=== PATIENT | male | born 1955 | race Hispanic/Latino ===

== ENCOUNTER 2021-02-05 12:22 | Inpatient (IN) | payer OTHER, SELFPAY ==
[2021-02-05] MEDS ORDERED: Ondansetron ODT 4 MG TAB PO PRN (18:09)
[2021-02-05] MEDS ORDERED: Acetaminophen 325 MG TAB PO PRN (18:09)
[2021-02-05] MEDS ORDERED: Electrolyte Replacement Protocol 1 EACH FS SCH (18:15)
[2021-02-05 20:42] LABS: CKMB 2.2 ng/mL (0-6.6)
[2021-02-05] MEDS ORDERED: glyBURIDE 5 MG TAB PO SCH (21:00)
[2021-02-05] MEDS: Gabapentin 300 MG CAP PO SCH (21:44)
[2021-02-05] MEDS: Atorvastatin Calcium 10 MG TAB PO SCH (21:45)
[2021-02-05] MEDS ORDERED: HumaLOG 300 UNITS/3 ML VIAL SC SCH (22:45)
[2021-02-06] MEDS ORDERED: HumaLOG 300 UNITS/3 ML VIAL SC SCH (00:30)
[2021-02-06 04:33] LABS: #Basophils 0.1 10x3/uL (0.0-0.2); #Eosinphils 0.2 10x3/uL (0.0-0.5); #Monocytes 0.9 10x3/uL (0.0-1.1); #Neutrophils 5.2 10x3/uL (1.5-8.4); %Basophils 0.8 % (0.0-2.0); %Eosinophils 2.5 % (0.0-6.0); %Lymphocytes 20.1 % (18.0-47.0); %Monocytes 11.2 % (0.0-10.0); Mean Corpuscular HGB CONC 30.8 g/dL (32.0-36.0); Mean Corpuscular Hemoglobin 27.4 pg (27.0-33.0); Mean Corpuscular Volume 88.8 fl (81.2-95.1); Mean Platelet Volume 10.5 fl (7.4-10.4); Platelet Count 204 10x3/uL (150-450); Red Blood Cell (RBC) Count 4.38 10x6/uL (4.32-5.72)
[2021-02-06 04:46] LABS: Anion Gap 8 mmol/L (10-20); BUN (Urea Nitrogen) 19 mg/dL (8.4-25.7); Calc. Creatinine Clearance 142 mL/min (70-130); Calcium 8.9 mg/dL (7.8-10.44); Carbon Dioxide 29 mmol/L (23-31); Cardiac Risk 2.7 (Less than 4.5); Chloride 106 mmol/L (98-107); Cholesterol 90 mg/dl (< 200 Desired); Glucose 149 mg/dL (80-115); HDL Cholesterol 33 mg/dL (>60 Neg Risk); LDL Cholesterol, Calculated 42 mg/dL; Potassium 3.7 mmol/L (3.5-5.1); Sodium 139 mmol/L (136-145); Triglycerides 76 mg/dL (Less than 150)
[2021-02-06] MEDS: Furosemide 40 MG/4 ML VIAL SLOW IVP SCH ×2 (06:37→14:18)
[2021-02-06] MEDS ORDERED: glyBURIDE 5 MG TAB PO SCH (07:30)
[2021-02-06] MEDS ORDERED: Losartan 25 MG TAB PO SCH (09:00)
[2021-02-06] MEDS ORDERED: metFORMIN 500 MG TAB PO SCH (09:00)
[2021-02-06] MEDS ORDERED: Lisinopril 2.5 MG TAB PO SCH (09:00)
[2021-02-06] MEDS: Fenofibrate Nanocrystallized 145 MG TAB PO SCH (09:21)
[2021-02-06] MEDS: Aspirin 81 mg Enteric Coated Tablet PO SCH (09:21)
[2021-02-06] MEDS: Carvedilol 6.25 MG TAB PO SCH (09:22)
[2021-02-06] MEDS: Tamsulosin HCl 0.4 MG CAP PO SCH (09:22)
[2021-02-06] MEDS: Gabapentin 300 MG CAP PO SCH ×3 (09:22→20:12)
[2021-02-06] MEDS ORDERED: Dextrose 50% Abboject 50 ML SYRINGE SLOW IVP PRN (10:14)
[2021-02-06] MEDS ORDERED: Dextrose 5% in Water 1,000 ML IV PRN (10:14)
[2021-02-06 10:34] VITALS: BMI 36.9
[2021-02-06 12:47] LABS: Hemoglobin A1c 11.7 % (4.0-6.0)
[2021-02-06] MEDS: HumaLOG 300 UNITS/3 ML VIAL SC PRN ×3 (12:50→20:13)
[2021-02-06 14:36] LABS: Bilirubin Neg (Negative); Blood, Urine Negative (Negative); Clarity Clear (Clear); Glucose, Urine (Dipstick) >=1000 mg/dL (Negative); Ketone, Urine Negative (Negative); Leukocyte Negative (Negative); Nitrite Negative (Negative); Protein, Urine (Dipstick) 15 mg/dl (Neg-Trace); Specific Gravity, Urine 1.015 (1.002-1.036); Urobilinogen Normal mg/dL (Less than 2)
[2021-02-06 15:12] LABS: Bacteria/HPF None Seen HPF (None Seen); RBC/HPF None Seen HPF (0-3); Squamous Epithelial None Seen HPF (0-3); Urine Culture Reflex No No; WBC/HPF None Seen HPF (0-3)
[2021-02-06 18:45] LABS: SARS-CoV-2 NAA Rapid Test Not Detected (NotDetected)
[2021-02-06 19:44] LABS: SARS-CoV-2 PCR by NAA Not Detected (NotDetected)
[2021-02-06] MEDS: Atorvastatin Calcium 10 MG TAB PO SCH (20:12)
[2021-02-07] MEDS: HumaLOG 300 UNITS/3 ML VIAL SC PRN ×4 (05:46→21:11)
[2021-02-07 06:03] LABS: #Eosinphils 0.2 10x3/uL (0.0-0.5); #Monocytes 1.1 10x3/uL (0.0-1.1); #Neutrophils 6.5 10x3/uL (1.5-8.4); %Basophils 0.4 % (0.0-2.0); %Eosinophils 1.8 % (0.0-6.0); %Lymphocytes 15.2 % (18.0-47.0); %Monocytes 11.8 % (0.0-10.0); %Neutrophils 70.5 % (40.0-75.0); Hemoglobin 12.2 g/dL (13.5-17.5); Mean Corpuscular HGB CONC 31.4 g/dL (32.0-36.0); Mean Corpuscular Hemoglobin 27.5 pg (27.0-33.0); Mean Corpuscular Volume 87.4 fl (81.2-95.1); Mean Platelet Volume 10.2 fl (7.4-10.4); Platelet Count 232 10x3/uL (150-450); RBC Distribution Width 13.1 % (11.5-14.5); Red Blood Cell (RBC) Count 4.44 10x6/uL (4.32-5.72); White Blood Cell (WBC) Count 9.3 10x3/uL (3.5-10.5)
[2021-02-07 06:33] LABS: Anion Gap 11 mmol/L (10-20); BUN (Urea Nitrogen) 20 mg/dL (8.4-25.7); Calc. Creatinine Clearance 122 mL/min (70-130); Calcium 8.9 mg/dL (7.8-10.44); Carbon Dioxide 32 mmol/L (23-31); Chloride 100 mmol/L (98-107); Glucose 299 mg/dL (80-115); Sodium 139 mmol/L (136-145)
[2021-02-07] MEDS: Carvedilol 6.25 MG TAB PO SCH (09:51)
[2021-02-07] MEDS: Fenofibrate Nanocrystallized 145 MG TAB PO SCH (09:51)
[2021-02-07] MEDS: Aspirin 81 mg Enteric Coated Tablet PO SCH (09:51)
[2021-02-07] MEDS: Gabapentin 300 MG CAP PO SCH ×3 (09:51→21:11)
[2021-02-07] MEDS: Tamsulosin HCl 0.4 MG CAP PO SCH (09:51)
[2021-02-07] MEDS: Atorvastatin Calcium 10 MG TAB PO SCH (21:11)
[2021-02-07] MEDS ORDERED: NPH, Human Insulin Isophane 300 UNIT/3 ML VIAL SC SCH (21:30)
[2021-02-07] MEDS ORDERED: Cepastat Lozenges 1 LOZ PO PRN (22:12)
[2021-02-08] MEDS ORDERED: Melatonin 3 MG TAB PO PRN (02:23)
[2021-02-08 06:14] LABS: Anion Gap 12 mmol/L (10-20); BUN (Urea Nitrogen) 21 mg/dL (8.4-25.7); Calc. Creatinine Clearance 122 mL/min (70-130); Calcium 9.2 mg/dL (7.8-10.44); Carbon Dioxide 31 mmol/L (23-31); Chloride 100 mmol/L (98-107); Glucose 201 mg/dL (80-115); Potassium 4.1 mmol/L (3.5-5.1); Sodium 139 mmol/L (136-145)
[2021-02-08 07:23] LABS: #Eosinphils 0.1 10x3/uL (0.0-0.5); #Monocytes 0.9 10x3/uL (0.0-1.1); #Neutrophils 6.6 10x3/uL (1.5-8.4); %Basophils 0.4 % (0.0-2.0); %Eosinophils 1.5 % (0.0-6.0); %Lymphocytes 16.8 % (18.0-47.0); %Monocytes 9.8 % (0.0-10.0); %Neutrophils 71.1 % (40.0-75.0); Hemoglobin 12.5 g/dL (13.5-17.5); Mean Corpuscular HGB CONC 31.6 g/dL (32.0-36.0); Mean Corpuscular Hemoglobin 27.7 pg (27.0-33.0); Mean Corpuscular Volume 87.6 fl (81.2-95.1); Mean Platelet Volume 10.9 fl (7.4-10.4); Platelet Count 235 10x3/uL (150-450); RBC Distribution Width 12.8 % (11.5-14.5); Red Blood Cell (RBC) Count 4.52 10x6/uL (4.32-5.72); White Blood Cell (WBC) Count 9.4 10x3/uL (3.5-10.5)
[2021-02-08] MEDS ORDERED: Clopidogrel Bisulfate 75 MG TAB PO SCH (09:00)
[2021-02-08] MEDS: Tamsulosin HCl 0.4 MG CAP PO SCH (09:32)
[2021-02-08] MEDS: Fenofibrate Nanocrystallized 145 MG TAB PO SCH (09:32)
[2021-02-08] MEDS: Aspirin 81 mg Enteric Coated Tablet PO SCH (09:32)
[2021-02-08] MEDS: Carvedilol 6.25 MG TAB PO SCH (09:32)
[2021-02-08] MEDS: Gabapentin 300 MG CAP PO SCH ×2 (09:32→17:00)
[2021-02-08] MEDS: HumaLOG 300 UNITS/3 ML VIAL SC PRN ×2 (13:23→17:41)
[2021-02-08 18:59] VITALS: BP 104/61; TEMP 98.7
[2021-02-08] MEDS ORDERED: FLU VACC QS2021-22(65YR UP)/PF 240 MCG/0.7 ML SYRINGE IM ONE (19:00)
== END 2021-02-08 18:35 | disposition home or self-care (01) | DRG 205 ==
LOC: CSHERS 12:22 → CSHTELE 15:21 → UNDOADMIN 15:21 → CSHTELE 02-06 12:24
PROVIDERS: ADMIT Internal Medicine; ATTEND Hospitalist
DX: J98.6 Disorders of diaphragm (principal); J96.01 Acute respiratory failure with hypoxia; I50.32 Chronic diastolic (congestive) heart failure; I11.0 Hypertensive heart disease with heart failure; E78.5 Hyperlipidemia, unspecified; I25.10 Atherosclerotic heart disease of native coronary artery without angina pectoris; E11.42 Type 2 diabetes mellitus with diabetic polyneuropathy; N28.1 Cyst of kidney, acquired; N40.0 Benign prostatic hyperplasia without lower urinary tract symptoms; E66.01 Morbid (severe) obesity due to excess calories; Z79.899 Other long term (current) drug therapy; Z95.5 Presence of coronary angioplasty implant and graft; I25.2 Old myocardial infarction; Z91.14 Patient's other noncompliance with medication regimen; Z68.34 Body mass index [BMI] 34.0-34.9, adult; Z20.822 Contact with and (suspected) exposure to COVID-19
CPT/HCPCS: 0240U; 36415; 36416; 71045; 71275; 74177; 80048; 80061; 81001; 82553; 83036; 83880; 84300; 85025; 85379; 93306; 93970; 94760; 96374; J1815; J1940; U0003; U0005

== ENCOUNTER 2022-01-16 13:58 | Inpatient (IN) | payer OTHER ==
[~2022-01-16 13:58] MED LIST: Iopamidol 370 76% 100 ML VIAL ONE
[2022-01-16 14:55] LABS: #Basophils 0.1 10x3/uL (0.0-0.2); #Eosinphils 0.2 10x3/uL (0.0-0.5); #Monocytes 0.7 10x3/uL (0.0-1.1); #Neutrophils 4.2 10x3/uL (1.5-8.4); %Basophils 1.1 % (0.0-2.0); %Eosinophils 3.2 % (0.0-6.0); %Lymphocytes 21.4 % (18.0-47.0); %Monocytes 9.9 % (0.0-10.0); %Neutrophils 64.1 % (40.0-75.0); Hemoglobin 12.8 g/dL (13.5-17.5); Mean Corpuscular HGB CONC 31.9 g/dL (32.0-36.0); Mean Corpuscular Hemoglobin 28.1 pg (27.0-33.0); Mean Corpuscular Volume 88.1 fl (81.2-95.1); Platelet Count 300 10x3/uL (150-450); RBC Distribution Width 14.6 % (11.5-14.5); Red Blood Cell (RBC) Count 4.55 10x6/uL (4.32-5.72); White Blood Cell (WBC) Count 6.6 10x3/uL (3.5-10.5)
[2022-01-16 15:12] LABS: ALT (SGPT) 40 U/L (8-55); AST (SGOT) 32 U/L (5-34); Albumin 3.5 g/dL (3.4-4.8); Alkaline Phosphatase 72 U/L (40-110); Anion Gap 13 mmol/L (10-20); BUN (Urea Nitrogen) 31 mg/dL (8.4-25.7); Bilirubin, Total 0.6 mg/dL (0.2-1.2); Calc. Creatinine Clearance 0 mL/min (70-130); Calcium 9.9 mg/dL (7.8-10.44); Carbon Dioxide 31 mmol/L (23-31); Chloride 103 mmol/L (98-107); Estimated GFR 52; Globulin 3.1 g/dL (2.4-3.5); Glucose 195 mg/dL (80-115); Lipase 33 U/L (8-78); Magnesium 1.8 mg/dL (1.6-2.6); Potassium 4.1 mmol/L (3.5-5.1); Protein, Total 6.6 g/dL (5.8-8.1); Sodium 143 mmol/L (136-145)
[2022-01-16 15:17] LABS: SARS-CoV-2 NAA Rapid Test Not Detected (NotDetected)
[2022-01-16 15:31] LABS: CKMB 11.2 ng/mL (0-6.6)
[2022-01-16] MEDS ORDERED: Furosemide 40 MG/4 ML VIAL ONE (17:23)
[2022-01-16] MEDS ORDERED: Aspirin 325 MG TAB ONE (17:23)
[2022-01-16] MEDS ORDERED: Acetaminophen 325 MG TAB PO PRN (18:53)
[2022-01-16] MEDS ORDERED: Acetaminophen 650 MG Suppository PR PRN (18:53)
[2022-01-16] MEDS ORDERED: Insulin Regular 300 UNITS/3 ML VIAL SC PRN (18:56)
[2022-01-16] MEDS ORDERED: Dextrose 5% in Water 1,000 ML IV PRN (18:56)
[2022-01-16] MEDS ORDERED: Dextrose 50% Abboject 50 ML SYRINGE SLOW IVP PRN (18:56)
[2022-01-16] MEDS ORDERED: Enoxaparin Sodium 40 MG/0.4 ML SYRINGE SC SCH (19:00)
[2022-01-16 19:51] VITALS: BMI 34.9
[2022-01-16] MEDS: Atorvastatin Calcium 10 MG TAB PO SCH (20:15)
[2022-01-16] MEDS: Gabapentin 300 MG CAP PO SCH (20:42)
[2022-01-17 05:14] LABS: Anion Gap 12 mmol/L (10-20); BUN (Urea Nitrogen) 29 mg/dL (8.4-25.7); Calc. Creatinine Clearance 102 mL/min (70-130); Calcium 9.6 mg/dL (7.8-10.44); Carbon Dioxide 32 mmol/L (23-31); Chloride 102 mmol/L (98-107); Estimated GFR 62; Glucose 260 mg/dL (80-115); Potassium 4.3 mmol/L (3.5-5.1); Sodium 142 mmol/L (136-145)
[2022-01-17] MEDS: Insulin Regular 300 UNITS/3 ML VIAL SC PRN (05:33)
[2022-01-17 05:34] LABS: #Basophils 0.1 10x3/uL (0.0-0.2); #Eosinphils 0.2 10x3/uL (0.0-0.5); #Monocytes 0.7 10x3/uL (0.0-1.1); #Neutrophils 4.4 10x3/uL (1.5-8.4); %Basophils 0.9 % (0.0-2.0); %Lymphocytes 21.5 % (18.0-47.0); %Monocytes 10.5 % (0.0-10.0); Hemoglobin 11.9 g/dL (13.5-17.5); Mean Corpuscular HGB CONC 31.3 g/dL (32.0-36.0); Mean Corpuscular Hemoglobin 27.9 pg (27.0-33.0); Mean Corpuscular Volume 89.2 fl (81.2-95.1); Mean Platelet Volume 10.7 fl (7.4-10.4); Platelet Count 284 10x3/uL (150-450); RBC Distribution Width 14.5 % (11.5-14.5); Red Blood Cell (RBC) Count 4.26 10x6/uL (4.32-5.72); White Blood Cell (WBC) Count 6.9 10x3/uL (3.5-10.5)
[2022-01-17] MEDS: Furosemide 40 MG/4 ML VIAL SLOW IVP SCH ×2 (05:34→18:45)
[2022-01-17] MEDS ORDERED: FLU VACC QS2022-23(65YR UP)/PF 240 MCG/0.7 ML SYRINGE IM ONE (09:00)
[2022-01-17] MEDS: Gabapentin 300 MG CAP PO SCH ×3 (09:32→20:13)
[2022-01-17] MEDS: Tamsulosin HCl 0.4 MG CAP PO SCH (09:33)
[2022-01-17] MEDS: Carvedilol 6.25 MG TAB PO SCH (09:33)
[2022-01-17] MEDS: Clopidogrel Bisulfate 75 MG TAB PO SCH (09:33)
[2022-01-17] MEDS: Fenofibrate Nanocrystallized 145 MG TAB PO SCH (11:12)
[2022-01-17] MEDS ORDERED: Furosemide 20 MG/2 ML VIAL ONE (14:47)
[2022-01-17] MEDS: Atorvastatin Calcium 10 MG TAB PO SCH (20:13)
[2022-01-17] MEDS ORDERED: Enoxaparin Sodium 40 MG/0.4 ML SYRINGE SC SCH (21:00)
[2022-01-18] MEDS: Furosemide 20 MG/2 ML VIAL ONE ×2 (05:08→05:14)
[2022-01-18] MEDS: Furosemide 40 MG/4 ML VIAL SLOW IVP SCH (05:16)
[2022-01-18 05:45] LABS: #Basophils 0.1 10x3/uL (0.0-0.2); #Eosinphils 0.1 10x3/uL (0.0-0.5); #Monocytes 0.6 10x3/uL (0.0-1.1); #Neutrophils 3.9 10x3/uL (1.5-8.4); %Basophils 0.8 % (0.0-2.0); %Eosinophils 2.3 % (0.0-6.0); %Lymphocytes 23.5 % (18.0-47.0); %Monocytes 10.3 % (0.0-10.0); %Neutrophils 62.6 % (40.0-75.0); Hemoglobin 11.8 g/dL (13.5-17.5); Mean Corpuscular HGB CONC 32.2 g/dL (32.0-36.0); Mean Corpuscular Hemoglobin 28.1 pg (27.0-33.0); Mean Corpuscular Volume 87.4 fl (81.2-95.1); Mean Platelet Volume 11.2 fl (7.4-10.4); Platelet Count 297 10x3/uL (150-450); RBC Distribution Width 14.2 % (11.5-14.5); White Blood Cell (WBC) Count 6.2 10x3/uL (3.5-10.5)
[2022-01-18 05:58] LABS: Anion Gap 14 mmol/L (10-20); BUN (Urea Nitrogen) 32 mg/dL (8.4-25.7); Calc. Creatinine Clearance 97 mL/min (70-130); Calcium 9.4 mg/dL (7.8-10.44); Carbon Dioxide 28 mmol/L (23-31); Chloride 100 mmol/L (98-107); Estimated GFR 58; Glucose 393 mg/dL (80-115); Potassium 4.5 mmol/L (3.5-5.1); Sodium 137 mmol/L (136-145)
[2022-01-18] MEDS: Insulin Regular 300 UNITS/3 ML VIAL SC PRN (06:21)
[2022-01-18 07:52] VITALS: TEMP 98.3
[2022-01-18 10:03] VITALS: BP 117/80
[2022-01-18] MEDS: Carvedilol 6.25 MG TAB PO SCH (10:03)
[2022-01-18] MEDS: Fenofibrate Nanocrystallized 145 MG TAB PO SCH (10:04)
[2022-01-18] MEDS: Tamsulosin HCl 0.4 MG CAP PO SCH (10:04)
[2022-01-18] MEDS: Gabapentin 300 MG CAP PO SCH (10:04)
[2022-01-18] MEDS: Clopidogrel Bisulfate 75 MG TAB PO SCH (10:04)
== END 2022-01-18 12:00 | disposition home or self-care (01) | DRG 291 ==
LOC: CSHERS 13:58 → CSHTELE 19:33 → OBSVTOIN 19:34
PROVIDERS: ADMIT Student in an Organized Health Care Education/Training Program; ATTEND Family Medicine
DX: I11.0 Hypertensive heart disease with heart failure (principal); I50.23 Acute on chronic systolic (congestive) heart failure; J96.01 Acute respiratory failure with hypoxia; N17.9 Acute kidney failure, unspecified; Z20.822 Contact with and (suspected) exposure to COVID-19; E78.5 Hyperlipidemia, unspecified; I71.21 Aneurysm of the ascending aorta, without rupture; R77.8 Other specified abnormalities of plasma proteins; I25.10 Atherosclerotic heart disease of native coronary artery without angina pectoris; E11.42 Type 2 diabetes mellitus with diabetic polyneuropathy; N40.0 Benign prostatic hyperplasia without lower urinary tract symptoms; Z95.5 Presence of coronary angioplasty implant and graft; Z79.899 Other long term (current) drug therapy; Z79.84 Long term (current) use of oral hypoglycemic drugs; Z98.890 Other specified postprocedural states; Z87.442 Personal history of urinary calculi; I25.2 Old myocardial infarction; Z79.02 Long term (current) use of antithrombotics/antiplatelets
CPT/HCPCS: 36415; 36416; 71045; 71275; 80048; 80053; 82553; 83690; 83735; 83880; 84484; 85025; 85379; 93005; 93306; 94760; 96374; J1650; J1815; J1940; Q9967

== ENCOUNTER 2022-02-12 07:49 | Inpatient (IN) | payer OTHER, SELFPAY ==
[2022-02-12] MEDS ORDERED: Furosemide 40 MG/4 ML VIAL ONE (08:35)
[2022-02-12] MEDS ORDERED: Aspirin Chewable 81 MG TAB ONE (08:35)
[2022-02-12] MEDS ORDERED: Nitroglycerin 2% Ointment 1 INCH/1 GM Packet ONE (08:36)
[2022-02-12 08:47] LABS: #Basophils 0.1 10x3/uL (0.0-0.2); #Eosinphils 0.2 10x3/uL (0.0-0.5); #Monocytes 0.7 10x3/uL (0.0-1.1); %Basophils 0.7 % (0.0-2.0); %Eosinophils 2.1 % (0.0-6.0); %Monocytes 8.9 % (0.0-10.0); %Neutrophils 75.1 % (40.0-75.0); Hemoglobin 12.1 g/dL (13.5-17.5); Mean Corpuscular HGB CONC 31.7 g/dL (32.0-36.0); Mean Corpuscular Hemoglobin 27.4 pg (27.0-33.0); Mean Corpuscular Volume 86.6 fl (81.2-95.1); Mean Platelet Volume 9.7 fl (7.4-10.4); Platelet Count 314 10x3/uL (150-450); RBC Distribution Width 14.5 % (11.5-14.5); Red Blood Cell (RBC) Count 4.41 10x6/uL (4.32-5.72)
[2022-02-12 08:58] LABS: ALT (SGPT) 20 U/L (8-55); AST (SGOT) 20 U/L (5-34); Albumin 3.3 g/dL (3.4-4.8); Alkaline Phosphatase 55 U/L (40-110); Anion Gap 14 mmol/L (10-20); BUN (Urea Nitrogen) 27 mg/dL (8.4-25.7); Bilirubin, Total 0.8 mg/dL (0.2-1.2); Calc. Creatinine Clearance 0 mL/min (70-130); Calcium 9.6 mg/dL (7.8-10.44); Carbon Dioxide 29 mmol/L (23-31); Chloride 106 mmol/L (98-107); Estimated GFR 76; Globulin 3.2 g/dL (2.4-3.5); Glucose 176 mg/dL (80-115); Potassium 4.8 mmol/L (3.5-5.1); Protein, Total 6.5 g/dL (5.8-8.1); Sodium 144 mmol/L (136-145)
[2022-02-12 08:59] LABS: Acetaminophen Less than 10.0 mcg/mL (10.0-30.0); Alcohol Less than 10 mg/dL (Less than 10); Salicylate Less than 8.0 mg/dL (15.0-30.0)
[2022-02-12 09:13] LABS: SARS-CoV-2 NAA Rapid Test Not Detected (NotDetected)
[2022-02-12 09:57] LABS: Bilirubin Neg (Negative); Blood, Urine Negative (Negative); Clarity Clear (Clear); Glucose, Urine (Dipstick) Normal (Negative); Ketone, Urine Negative (Negative); Leukocyte Negative (Negative); Nitrite Negative (Negative); Protein, Urine (Dipstick) 15 mg/dl (Neg-Trace); Urobilinogen Normal mg/dL (Less than 2)
[2022-02-12 10:05] LABS: Amphetamine Not Detected (NotDetected); Barbiturates Screen Not Detected (NotDetected); Benzodiazepine Screen Not Detected (NotDetected); Cocaine Metabolite Screen Not Detected (NotDetected); Methadone Not Detected (NotDetected); Methamphetamine Not Detected (NotDetected); Opiate Screen Not Detected (NotDetected); Oxycodone Screen Not Detected (NotDetected); Phencyclidine (PCP) Not Detected (NotDetected); THC/Cannabinoid Screen Not Detected (NotDetected); Tricyclic Screen Not Detected (NotDetected)
[2022-02-12] MEDS ORDERED: Ondansetron PF 4 MG/2 ML Vial IVP PRN (11:22)
[2022-02-12] MEDS ORDERED: Acetaminophen 650 MG Suppository PR PRN (11:22)
[2022-02-12] MEDS ORDERED: Ondansetron ODT 4 MG TAB PO PRN (11:22)
[2022-02-12] MEDS ORDERED: Dextrose 50% Abboject 50 ML SYRINGE SLOW IVP PRN (11:25)
[2022-02-12] MEDS ORDERED: Dextrose 5% in Water 1,000 ML IV PRN (11:25)
[2022-02-12] MEDS ORDERED: Insulin Regular 300 UNITS/3 ML VIAL SC PRN (11:25)
[2022-02-12 11:46] LABS: Troponin I 0.023 ng/mL (< 0.028)
[2022-02-12 12:09] LABS: Magnesium 1.6 mg/dL (1.6-2.6)
[2022-02-12 12:16] LABS: Actual Bicarbonate (HCO3a) 31.8 mEq/L (22-28); Base Excess (BEa) 4.9 mEq/L (-2.0 to +3.0); Hemoglobin (Hb) 13.3 g/dL (14.0-18.0); O2 Tension (PaO2), arterial 80.4 mmHg (> 80.0); pH, Arterial 7.36 (7.35-7.45)
[2022-02-12 12:17] LABS: Calcium, Ionized (arterial) 1.26 mmol/L (1.12-1.30); Potassium - ABG Lab 4.4 mmol/L (3.70-5.30); Puncture Site LRA
[2022-02-12] MEDS ORDERED: Enoxaparin Sodium 40 MG/0.4 ML SYRINGE SC SCH (13:00)
[2022-02-12] MEDS: Furosemide 40 MG/4 ML VIAL SLOW IVP SCH (14:44)
[2022-02-12 15:07] LABS: Troponin I 0.019 ng/mL (< 0.028)
[2022-02-12] MEDS ORDERED: FLU VACC QS2022-23(65YR UP)/PF 240 MCG/0.7 ML SYRINGE IM ONE (16:00)
[2022-02-12] MEDS ORDERED: Magnesium 2 GM/50 ML BAG (IN WATER) ONE (20:44)
[2022-02-12] MEDS: Atorvastatin Calcium 10 MG TAB PO SCH (20:56)
[2022-02-12] MEDS: Melatonin 3 MG TAB PO SCH (20:56)
[2022-02-12] MEDS ORDERED: Magnesium 2 GM/50 ML(in water) 2 GM in Premix Bag 1 BAG IVPB SCH (21:00)
[2022-02-13 04:07] LABS: #Eosinphils 0.1 10x3/uL (0.0-0.5); #Monocytes 0.4 10x3/uL (0.0-1.1); #Neutrophils 4.5 10x3/uL (1.5-8.4); %Basophils 0.3 % (0.0-2.0); %Eosinophils 1.4 % (0.0-6.0); %Lymphocytes 12.8 % (18.0-47.0); %Monocytes 7.4 % (0.0-10.0); %Neutrophils 77.8 % (40.0-75.0); Hemoglobin 11.2 g/dL (13.5-17.5); Mean Corpuscular HGB CONC 31.2 g/dL (32.0-36.0); Mean Corpuscular Hemoglobin 27.3 pg (27.0-33.0); Mean Corpuscular Volume 87.3 fl (81.2-95.1); Platelet Count 282 10x3/uL (150-450); RBC Distribution Width 14.3 % (11.5-14.5); Red Blood Cell (RBC) Count 4.11 10x6/uL (4.32-5.72); White Blood Cell (WBC) Count 5.8 10x3/uL (3.5-10.5)
[2022-02-13 04:20] LABS: Anion Gap 13 mmol/L (10-20); BUN (Urea Nitrogen) 32 mg/dL (8.4-25.7); Calc. Creatinine Clearance 110 mL/min (70-130); Calcium 9.3 mg/dL (7.8-10.44); Carbon Dioxide 31 mmol/L (23-31); Chloride 102 mmol/L (98-107); Estimated GFR 68; Glucose 334 mg/dL (80-115); Magnesium 1.8 mg/dL (1.6-2.6); Potassium 4.6 mmol/L (3.5-5.1); Sodium 141 mmol/L (136-145)
[2022-02-13] MEDS: Insulin Regular 300 UNITS/3 ML VIAL SC PRN ×2 (05:22→13:46)
[2022-02-13] MEDS: Furosemide 40 MG/4 ML VIAL SLOW IVP SCH ×2 (06:34→12:18)
[2022-02-13] MEDS: Carvedilol 6.25 MG TAB PO SCH (09:52)
[2022-02-13] MEDS: Tamsulosin HCl 0.4 MG CAP PO SCH (09:52)
[2022-02-13] MEDS: Enoxaparin Sodium 40 MG/0.4 ML SYRINGE SC SCH (09:52)
[2022-02-13] MEDS: Aspirin Chewable 81 MG TAB PO SCH (09:52)
[2022-02-13] MEDS: Fenofibrate Nanocrystallized 145 MG TAB PO SCH (09:52)
[2022-02-13] MEDS: Clopidogrel Bisulfate 75 MG TAB PO SCH (09:52)
[2022-02-13] MEDS ORDERED: Furosemide 40 MG TAB PO SCH ×2 (11:45→17:30)
[2022-02-13] MEDS ORDERED: OLANZapine 5 MG TAB PO SCH (17:00)
[2022-02-13] MEDS ORDERED: Lorazepam 2 MG/ML VIAL SLOW IVP SCH (17:00)
[2022-02-13] MEDS: Melatonin 3 MG TAB PO SCH (20:45)
[2022-02-13] MEDS: Atorvastatin Calcium 10 MG TAB PO SCH (20:45)
[2022-02-14 04:19] LABS: #Basophils 0.1 10x3/uL (0.0-0.2); #Eosinphils 0.2 10x3/uL (0.0-0.5); #Monocytes 0.9 10x3/uL (0.0-1.1); #Neutrophils 4.5 10x3/uL (1.5-8.4); %Basophils 0.9 % (0.0-2.0); %Eosinophils 2.1 % (0.0-6.0); %Lymphocytes 26.5 % (18.0-47.0); %Monocytes 11.7 % (0.0-10.0); %Neutrophils 58.5 % (40.0-75.0); Hemoglobin 12.3 g/dL (13.5-17.5); Mean Corpuscular HGB CONC 31.6 g/dL (32.0-36.0); Mean Corpuscular Hemoglobin 27.2 pg (27.0-33.0); Mean Corpuscular Volume 85.9 fl (81.2-95.1); Mean Platelet Volume 9.8 fl (7.4-10.4); Platelet Count 342 10x3/uL (150-450); RBC Distribution Width 14.5 % (11.5-14.5); Red Blood Cell (RBC) Count 4.53 10x6/uL (4.32-5.72); White Blood Cell (WBC) Count 7.7 10x3/uL (3.5-10.5)
[2022-02-14 04:28] LABS: Anion Gap 13 mmol/L (10-20); BUN (Urea Nitrogen) 34 mg/dL (8.4-25.7); Calc. Creatinine Clearance 101 mL/min (70-130); Calcium 10.2 mg/dL (7.8-10.44); Carbon Dioxide 33 mmol/L (23-31); Chloride 97 mmol/L (98-107); Estimated GFR 61; Glucose 222 mg/dL (80-115); Potassium 3.9 mmol/L (3.5-5.1); Sodium 139 mmol/L (136-145)
[2022-02-14] MEDS: Insulin Regular 300 UNITS/3 ML VIAL SC PRN (05:17)
[2022-02-14] MEDS: Furosemide 40 MG/4 ML VIAL SLOW IVP SCH (08:12)
[2022-02-14] MEDS: Fenofibrate Nanocrystallized 145 MG TAB PO SCH (08:15)
[2022-02-14] MEDS: Enoxaparin Sodium 40 MG/0.4 ML SYRINGE SC SCH (08:15)
[2022-02-14] MEDS: Tamsulosin HCl 0.4 MG CAP PO SCH (08:15)
[2022-02-14] MEDS: Clopidogrel Bisulfate 75 MG TAB PO SCH (08:16)
[2022-02-14] MEDS: Carvedilol 6.25 MG TAB PO SCH (08:16)
[2022-02-14] MEDS: Aspirin Chewable 81 MG TAB PO SCH (08:16)
[2022-02-14] MEDS: Furosemide 40 MG TAB PO SCH (14:40)
[2022-02-14] MEDS: Gabapentin 300 MG CAP PO SCH ×2 (16:28→21:36)
[2022-02-14] MEDS: HumaLOG 300 UNITS/3 ML VIAL SC PRN ×2 (16:49→21:40)
[2022-02-14] MEDS: Atorvastatin Calcium 10 MG TAB PO SCH (21:36)
[2022-02-14] MEDS: glyBURIDE 5 MG TAB PO SCH (21:36)
[2022-02-14] MEDS: Melatonin 3 MG TAB PO SCH (21:37)
[2022-02-14] MEDS: Lantus 1000 UNITS/10 ML VIAL SC SCH (21:41)
[2022-02-15 04:20] LABS: Anion Gap 11 mmol/L (10-20); BUN (Urea Nitrogen) 35 mg/dL (8.4-25.7); Calc. Creatinine Clearance 100 mL/min (70-130); Calcium 9.7 mg/dL (7.8-10.44); Carbon Dioxide 36 mmol/L (23-31); Chloride 97 mmol/L (98-107); Estimated GFR 61; Glucose 320 mg/dL (80-115); Potassium 4.6 mmol/L (3.5-5.1); Sodium 139 mmol/L (136-145)
[2022-02-15 04:29] LABS: #Basophils 0.1 10x3/uL (0.0-0.2); #Eosinphils 0.2 10x3/uL (0.0-0.5); #Monocytes 0.7 10x3/uL (0.0-1.1); #Neutrophils 3.5 10x3/uL (1.5-8.4); %Basophils 0.9 % (0.0-2.0); %Eosinophils 2.6 % (0.0-6.0); %Lymphocytes 24.5 % (18.0-47.0); %Monocytes 11.7 % (0.0-10.0); %Neutrophils 60.1 % (40.0-75.0); Hemoglobin 11.8 g/dL (13.5-17.5); Mean Corpuscular HGB CONC 31.1 g/dL (32.0-36.0); Mean Corpuscular Hemoglobin 27.1 pg (27.0-33.0); Mean Corpuscular Volume 87.4 fl (81.2-95.1); Platelet Count 287 10x3/uL (150-450); RBC Distribution Width 14.5 % (11.5-14.5); Red Blood Cell (RBC) Count 4.35 10x6/uL (4.32-5.72); White Blood Cell (WBC) Count 5.8 10x3/uL (3.5-10.5)
[2022-02-15] MEDS: HumaLOG 300 UNITS/3 ML VIAL SC PRN ×4 (06:16→21:16)
[2022-02-15] MEDS: Lisinopril 2.5 MG TAB PO SCH (08:07)
[2022-02-15] MEDS: Carvedilol 6.25 MG TAB PO SCH (08:07)
[2022-02-15] MEDS: Enoxaparin Sodium 40 MG/0.4 ML SYRINGE SC SCH (08:07)
[2022-02-15] MEDS: Aspirin Chewable 81 MG TAB PO SCH (08:07)
[2022-02-15] MEDS: Furosemide 40 MG TAB PO SCH ×2 (08:07→15:37)
[2022-02-15] MEDS: Gabapentin 300 MG CAP PO SCH ×3 (08:08→21:11)
[2022-02-15] MEDS: Tamsulosin HCl 0.4 MG CAP PO SCH (08:08)
[2022-02-15] MEDS: Clopidogrel Bisulfate 75 MG TAB PO SCH (08:12)
[2022-02-15] MEDS: Fenofibrate Nanocrystallized 145 MG TAB PO SCH (08:12)
[2022-02-15] MEDS: glyBURIDE 5 MG TAB PO SCH ×2 (08:12→21:12)
[2022-02-15] MEDS: Melatonin 3 MG TAB PO SCH (21:11)
[2022-02-15] MEDS: Atorvastatin Calcium 10 MG TAB PO SCH (21:12)
[2022-02-15] MEDS: Lantus 1000 UNITS/10 ML VIAL SC SCH (21:12)
[2022-02-16] MEDS: HumaLOG 300 UNITS/3 ML VIAL SC PRN ×2 (04:30→11:30)
[2022-02-16 04:32] LABS: #Basophils 0.1 10x3/uL (0.0-0.2); #Eosinphils 0.2 10x3/uL (0.0-0.5); #Monocytes 0.8 10x3/uL (0.0-1.1); #Neutrophils 4.7 10x3/uL (1.5-8.4); %Basophils 0.7 % (0.0-2.0); %Eosinophils 2.6 % (0.0-6.0); %Lymphocytes 21.6 % (18.0-47.0); %Monocytes 10.5 % (0.0-10.0); %Neutrophils 64.2 % (40.0-75.0); Mean Corpuscular HGB CONC 31.3 g/dL (32.0-36.0); Mean Corpuscular Hemoglobin 27.3 pg (27.0-33.0); Mean Corpuscular Volume 87.5 fl (81.2-95.1); Mean Platelet Volume 9.8 fl (7.4-10.4); Platelet Count 274 10x3/uL (150-450); RBC Distribution Width 14.2 % (11.5-14.5); Red Blood Cell (RBC) Count 4.39 10x6/uL (4.32-5.72); White Blood Cell (WBC) Count 7.3 10x3/uL (3.5-10.5)
[2022-02-16 04:58] LABS: Anion Gap 10 mmol/L (10-20); BUN (Urea Nitrogen) 36 mg/dL (8.4-25.7); Calc. Creatinine Clearance 95 mL/min (70-130); Calcium 10.1 mg/dL (7.8-10.44); Carbon Dioxide 37 mmol/L (23-31); Chloride 95 mmol/L (98-107); Estimated GFR 57; Glucose 246 mg/dL (80-115); Potassium 4.3 mmol/L (3.5-5.1); Sodium 138 mmol/L (136-145)
[2022-02-16] MEDS: Acetaminophen 325 MG TAB PO PRN (08:47)
[2022-02-16] MEDS: Lisinopril 2.5 MG TAB PO SCH (08:48)
[2022-02-16] MEDS: Carvedilol 6.25 MG TAB PO SCH ×2 (08:48→15:26)
[2022-02-16] MEDS: glyBURIDE 5 MG TAB PO SCH ×2 (08:48→20:49)
[2022-02-16] MEDS: Furosemide 40 MG TAB PO SCH ×2 (08:49→13:37)
[2022-02-16] MEDS: Gabapentin 300 MG CAP PO SCH ×3 (08:49→20:50)
[2022-02-16] MEDS: Fenofibrate Nanocrystallized 145 MG TAB PO SCH (08:49)
[2022-02-16] MEDS: Aspirin Chewable 81 MG TAB PO SCH (08:49)
[2022-02-16] MEDS: Tamsulosin HCl 0.4 MG CAP PO SCH (08:49)
[2022-02-16] MEDS: Clopidogrel Bisulfate 75 MG TAB PO SCH (08:50)
[2022-02-16] MEDS: Enoxaparin Sodium 40 MG/0.4 ML SYRINGE SC SCH (08:51)
[2022-02-16] MEDS: Atorvastatin Calcium 10 MG TAB PO SCH (20:49)
[2022-02-16] MEDS: Melatonin 3 MG TAB PO SCH (20:50)
[2022-02-16] MEDS: Lantus 1000 UNITS/10 ML VIAL SC SCH (20:51)
[2022-02-17 06:49] LABS: Anion Gap 15 mmol/L (10-20); BUN (Urea Nitrogen) 36 mg/dL (8.4-25.7); Calc. Creatinine Clearance 93 mL/min (70-130); Calcium 9.7 mg/dL (7.8-10.44); Carbon Dioxide 35 mmol/L (23-31); Chloride 92 mmol/L (98-107); Estimated GFR 56; Glucose 332 mg/dL (80-115); Potassium 4.6 mmol/L (3.5-5.1); Sodium 137 mmol/L (136-145)
[2022-02-17 07:01] LABS: #Basophils 0.1 10x3/uL (0.0-0.2); #Eosinphils 0.2 10x3/uL (0.0-0.5); #Monocytes 0.9 10x3/uL (0.0-1.1); #Neutrophils 3.8 10x3/uL (1.5-8.4); %Eosinophils 2.8 % (0.0-6.0); %Lymphocytes 25.1 % (18.0-47.0); %Monocytes 13.7 % (0.0-10.0); %Neutrophils 57.3 % (40.0-75.0); Mean Corpuscular HGB CONC 31.7 g/dL (32.0-36.0); Mean Corpuscular Hemoglobin 27.4 pg (27.0-33.0); Mean Corpuscular Volume 86.3 fl (81.2-95.1); Mean Platelet Volume 10.3 fl (7.4-10.4); Platelet Count 269 10x3/uL (150-450); RBC Distribution Width 14.3 % (11.5-14.5); Red Blood Cell (RBC) Count 4.38 10x6/uL (4.32-5.72); White Blood Cell (WBC) Count 6.7 10x3/uL (3.5-10.5)
[2022-02-17] MEDS: Aspirin Chewable 81 MG TAB PO SCH (11:11)
[2022-02-17] MEDS: Furosemide 40 MG TAB PO SCH ×2 (11:11→16:09)
[2022-02-17] MEDS: Clopidogrel Bisulfate 75 MG TAB PO SCH (11:11)
[2022-02-17] MEDS: glyBURIDE 5 MG TAB PO SCH ×2 (11:12→23:01)
[2022-02-17] MEDS: Fenofibrate Nanocrystallized 145 MG TAB PO SCH (11:12)
[2022-02-17] MEDS: Tamsulosin HCl 0.4 MG CAP PO SCH (11:12)
[2022-02-17] MEDS: Lisinopril 2.5 MG TAB PO SCH (11:12)
[2022-02-17] MEDS: Gabapentin 300 MG CAP PO SCH ×4 (11:12→23:08)
[2022-02-17] MEDS: Enoxaparin Sodium 40 MG/0.4 ML SYRINGE SC SCH (11:13)
[2022-02-17] MEDS: Lantus 1000 UNITS/10 ML VIAL SC SCH ×2 (11:17→22:55)
[2022-02-17] MEDS: Carvedilol 6.25 MG TAB PO SCH ×2 (11:21→18:30)
[2022-02-17] MEDS: HumaLOG 300 UNITS/3 ML VIAL SC PRN ×2 (18:31→23:01)
[2022-02-17] MEDS: Atorvastatin Calcium 10 MG TAB PO SCH (22:54)
[2022-02-17] MEDS: Melatonin 3 MG TAB PO SCH (23:08)
[2022-02-17] MEDS: Acetaminophen 325 MG TAB PO PRN (23:11)
[2022-02-18] MEDS: HumaLOG 300 UNITS/3 ML VIAL SC PRN ×3 (06:40→22:45)
[2022-02-18] MEDS: Clopidogrel Bisulfate 75 MG TAB PO SCH (10:00)
[2022-02-18] MEDS: Aspirin Chewable 81 MG TAB PO SCH (10:00)
[2022-02-18] MEDS: Furosemide 40 MG TAB PO SCH ×2 (10:01→14:16)
[2022-02-18] MEDS: Tamsulosin HCl 0.4 MG CAP PO SCH (10:01)
[2022-02-18] MEDS: Lisinopril 2.5 MG TAB PO SCH (10:01)
[2022-02-18] MEDS: Fenofibrate Nanocrystallized 145 MG TAB PO SCH (10:01)
[2022-02-18] MEDS: Lantus 1000 UNITS/10 ML VIAL SC SCH ×2 (10:03→22:44)
[2022-02-18] MEDS: Gabapentin 300 MG CAP PO SCH ×3 (10:04→22:44)
[2022-02-18] MEDS: Carvedilol 6.25 MG TAB PO SCH ×2 (10:05→17:05)
[2022-02-18] MEDS: glyBURIDE 5 MG TAB PO SCH ×2 (10:05→22:44)
[2022-02-18] MEDS: Enoxaparin Sodium 40 MG/0.4 ML SYRINGE SC SCH (10:06)
[2022-02-18 14:17] VITALS: BMI 34.6
[2022-02-18] MEDS: Atorvastatin Calcium 10 MG TAB PO SCH (22:42)
[2022-02-18] MEDS: Melatonin 3 MG TAB PO SCH (22:47)
[2022-02-19] MEDS: HumaLOG 300 UNITS/3 ML VIAL SC PRN ×3 (07:24→21:25)
[2022-02-19] MEDS: Carvedilol 6.25 MG TAB PO SCH ×2 (09:26→17:00)
[2022-02-19] MEDS: Lantus 1000 UNITS/10 ML VIAL SC SCH ×2 (09:26→21:24)
[2022-02-19] MEDS: Clopidogrel Bisulfate 75 MG TAB PO SCH (09:26)
[2022-02-19] MEDS: glyBURIDE 5 MG TAB PO SCH ×2 (09:26→21:24)
[2022-02-19] MEDS: Aspirin Chewable 81 MG TAB PO SCH (09:26)
[2022-02-19] MEDS: Lisinopril 2.5 MG TAB PO SCH (09:26)
[2022-02-19] MEDS: Tamsulosin HCl 0.4 MG CAP PO SCH (09:26)
[2022-02-19] MEDS: Furosemide 40 MG TAB PO SCH ×2 (09:27→16:58)
[2022-02-19] MEDS: Fenofibrate Nanocrystallized 145 MG TAB PO SCH (09:27)
[2022-02-19] MEDS: Enoxaparin Sodium 40 MG/0.4 ML SYRINGE SC SCH (09:27)
[2022-02-19] MEDS: Gabapentin 300 MG CAP PO SCH ×3 (09:27→22:54)
[2022-02-19] MEDS: Atorvastatin Calcium 10 MG TAB PO SCH (21:24)
[2022-02-19] MEDS: Melatonin 3 MG TAB PO SCH (22:55)
[2022-02-20] MEDS: HumaLOG 300 UNITS/3 ML VIAL SC PRN ×2 (07:19→19:24)
[2022-02-20] MEDS: Enoxaparin Sodium 40 MG/0.4 ML SYRINGE SC SCH (08:19)
[2022-02-20] MEDS: Furosemide 40 MG TAB PO SCH ×2 (08:19→14:34)
[2022-02-20] MEDS: glyBURIDE 5 MG TAB PO SCH ×2 (08:19→23:57)
[2022-02-20] MEDS: Fenofibrate Nanocrystallized 145 MG TAB PO SCH (08:19)
[2022-02-20] MEDS: Clopidogrel Bisulfate 75 MG TAB PO SCH (08:20)
[2022-02-20] MEDS: Carvedilol 6.25 MG TAB PO SCH ×2 (08:20→17:35)
[2022-02-20] MEDS: Aspirin Chewable 81 MG TAB PO SCH (08:20)
[2022-02-20] MEDS: Gabapentin 300 MG CAP PO SCH ×3 (08:20→23:57)
[2022-02-20] MEDS: Tamsulosin HCl 0.4 MG CAP PO SCH (08:20)
[2022-02-20] MEDS: Lantus 1000 UNITS/10 ML VIAL SC SCH ×2 (08:21→23:57)
[2022-02-20] MEDS: Lisinopril 2.5 MG TAB PO SCH (08:22)
[2022-02-20] MEDS: Melatonin 3 MG TAB PO SCH (23:57)
[2022-02-20] MEDS: Atorvastatin Calcium 10 MG TAB PO SCH (23:57)
[2022-02-21 05:58] LABS: #Basophils 0.1 10x3/uL (0.0-0.2); #Eosinphils 0.2 10x3/uL (0.0-0.5); #Monocytes 0.8 10x3/uL (0.0-1.1); #Neutrophils 2.8 10x3/uL (1.5-8.4); %Basophils 1.2 % (0.0-2.0); %Eosinophils 3.9 % (0.0-6.0); %Lymphocytes 25.5 % (18.0-47.0); %Monocytes 14.8 % (0.0-10.0); %Neutrophils 54.2 % (40.0-75.0); Hemoglobin 10.5 g/dL (13.5-17.5); Mean Corpuscular HGB CONC 31.7 g/dL (32.0-36.0); Mean Corpuscular Hemoglobin 27.2 pg (27.0-33.0); Mean Corpuscular Volume 85.8 fl (81.2-95.1); Mean Platelet Volume 10.4 fl (7.4-10.4); Platelet Count 226 10x3/uL (150-450); RBC Distribution Width 14.5 % (11.5-14.5); Red Blood Cell (RBC) Count 3.86 10x6/uL (4.32-5.72); White Blood Cell (WBC) Count 5.1 10x3/uL (3.5-10.5)
[2022-02-21 06:06] LABS: BUN (Urea Nitrogen) 25 mg/dL (8.4-25.7); Calc. Creatinine Clearance 97 mL/min (70-130); Calcium 8.8 mg/dL (7.8-10.44); Estimated GFR 58; Glucose 327 mg/dL (80-115)
[2022-02-21 06:14] LABS: Anion Gap 18 mmol/L (10-20); Carbon Dioxide 30 mmol/L (23-31); Chloride 93 mmol/L (98-107); Potassium 4.3 mmol/L (3.5-5.1); Sodium 137 mmol/L (136-145)
[2022-02-21] MEDS: HumaLOG 300 UNITS/3 ML VIAL SC PRN ×2 (06:23→20:04)
[2022-02-21] MEDS ORDERED: Non-Formulary Medication 1 EACH (Dulaglutide [Trulicity] 0.75 MG/0.5 ML Pen.Injctr) IVP SCH (09:00)
[2022-02-21] MEDS: Gabapentin 300 MG CAP PO SCH ×3 (09:13→20:03)
[2022-02-21] MEDS: Clopidogrel Bisulfate 75 MG TAB PO SCH (09:13)
[2022-02-21] MEDS: Aspirin Chewable 81 MG TAB PO SCH (09:13)
[2022-02-21] MEDS: Tamsulosin HCl 0.4 MG CAP PO SCH (09:13)
[2022-02-21] MEDS: Enoxaparin Sodium 40 MG/0.4 ML SYRINGE SC SCH (09:14)
[2022-02-21] MEDS: Carvedilol 6.25 MG TAB PO SCH ×2 (09:14→17:13)
[2022-02-21] MEDS: Lisinopril 2.5 MG TAB PO SCH (09:15)
[2022-02-21] MEDS: Furosemide 40 MG TAB PO SCH ×2 (09:15→14:49)
[2022-02-21] MEDS: glyBURIDE 5 MG TAB PO SCH ×2 (09:15→20:03)
[2022-02-21] MEDS: Fenofibrate Nanocrystallized 145 MG TAB PO SCH (09:15)
[2022-02-21] MEDS: Lantus 1000 UNITS/10 ML VIAL SC SCH ×2 (09:31→20:04)
[2022-02-21] MEDS: Atorvastatin Calcium 10 MG TAB PO SCH (20:02)
[2022-02-21] MEDS: Melatonin 3 MG TAB PO SCH (20:02)
[2022-02-22 05:37] LABS: #Eosinphils 0.3 10x3/uL (0.0-0.5); #Monocytes 0.8 10x3/uL (0.0-1.1); #Neutrophils 3.1 10x3/uL (1.5-8.4); %Basophils 0.7 % (0.0-2.0); %Eosinophils 5.1 % (0.0-6.0); %Lymphocytes 27.4 % (18.0-47.0); %Monocytes 12.8 % (0.0-10.0); %Neutrophils 53.7 % (40.0-75.0); Hemoglobin 11.2 g/dL (13.5-17.5); Mean Corpuscular HGB CONC 32.1 g/dL (32.0-36.0); Mean Corpuscular Hemoglobin 27.5 pg (27.0-33.0); Mean Corpuscular Volume 85.7 fl (81.2-95.1); Mean Platelet Volume 10.7 fl (7.4-10.4); Platelet Count 251 10x3/uL (150-450); RBC Distribution Width 14.4 % (11.5-14.5); Red Blood Cell (RBC) Count 4.07 10x6/uL (4.32-5.72); White Blood Cell (WBC) Count 5.8 10x3/uL (3.5-10.5)
[2022-02-22 05:48] LABS: Anion Gap 13 mmol/L (10-20); BUN (Urea Nitrogen) 29 mg/dL (8.4-25.7); Calc. Creatinine Clearance 93 mL/min (70-130); Calcium 9.2 mg/dL (7.8-10.44); Carbon Dioxide 37 mmol/L (23-31); Chloride 92 mmol/L (98-107); Estimated GFR 55; Glucose 218 mg/dL (80-115); Potassium 4.6 mmol/L (3.5-5.1); Sodium 137 mmol/L (136-145)
[2022-02-22] MEDS: HumaLOG 300 UNITS/3 ML VIAL SC PRN ×3 (07:29→17:07)
[2022-02-22] MEDS: Aspirin Chewable 81 MG TAB PO SCH (09:01)
[2022-02-22] MEDS: Enoxaparin Sodium 40 MG/0.4 ML SYRINGE SC SCH (09:01)
[2022-02-22] MEDS: Tamsulosin HCl 0.4 MG CAP PO SCH (09:01)
[2022-02-22] MEDS: Clopidogrel Bisulfate 75 MG TAB PO SCH (09:01)
[2022-02-22] MEDS: Furosemide 40 MG TAB PO SCH ×2 (09:01→15:39)
[2022-02-22] MEDS: Fenofibrate Nanocrystallized 145 MG TAB PO SCH (09:01)
[2022-02-22] MEDS: Gabapentin 300 MG CAP PO SCH ×2 (09:01→15:39)
[2022-02-22] MEDS: Carvedilol 6.25 MG TAB PO SCH ×2 (09:01→17:07)
[2022-02-22] MEDS: glyBURIDE 5 MG TAB PO SCH (09:02)
[2022-02-22] MEDS: Lisinopril 2.5 MG TAB PO SCH (09:02)
[2022-02-22] MEDS: Lantus 1000 UNITS/10 ML VIAL SC SCH (09:02)
[2022-02-22 16:44] VITALS: BP 118/78; TEMP 98.1
== END 2022-02-22 17:35 | DRG 70 ==
LOC: CSHERS 07:49 → CSHTELE 12:01
PROVIDERS: ADMIT Internal Medicine; ATTEND Family Medicine
DX: G93.41 Metabolic encephalopathy (principal); I50.33 Acute on chronic diastolic (congestive) heart failure; J96.01 Acute respiratory failure with hypoxia; F23 Brief psychotic disorder; Z20.822 Contact with and (suspected) exposure to COVID-19; I11.0 Hypertensive heart disease with heart failure; E78.5 Hyperlipidemia, unspecified; E11.42 Type 2 diabetes mellitus with diabetic polyneuropathy; N40.0 Benign prostatic hyperplasia without lower urinary tract symptoms; I71.40 Abdominal aortic aneurysm, without rupture, unspecified; G47.33 Obstructive sleep apnea (adult) (pediatric); E11.65 Type 2 diabetes mellitus with hyperglycemia; I25.10 Atherosclerotic heart disease of native coronary artery without angina pectoris; Z95.5 Presence of coronary angioplasty implant and graft; I25.2 Old myocardial infarction
CPT/HCPCS: 36415; 36416; 36600; 70450; 71045; 80048; 80053; 80306; 80307; 81003; 82805; 83605; 83735; 83880; 84443; 84484; 85025; 87804; 87811; 93005; 94660; 94760; 96374; 97139; J1650; J1815; J1940; J3475; U0002